=== PATIENT | female | born 1965 | race Asian ===

== ENCOUNTER 2021-03-18 09:24 | Outpatient (REF) | payer OTHER, SELFPAY ==
[2021-03-18 11:21] LABS: Alanine Aminotransferase 7 U/L (0-31); Albumin Level 4.4 g/dL (3.5-5.0); Alkaline Phosphatase 76 U/L (39-117); Anion Gap 11 (12-20); Aspartate Amino Transferase 15 U/L (5-31); Bilirubin Direct < 0.2 mg/dL (0.0-0.5); Bilirubin Total 0.4 mg/dL (0.0-1.0); Blood Urea Nitrogen 14 mg/dL (9-16); Calcium 9.4 mg/dL (8.4-10.2); Carbon Dioxide 23 mmol/L (22-29); Chloride 112 mmol/L (96-108); Estimated Glomerular Filt Rate > 60; Glucose Random 87 mg/dL (60-115); Potassium 4.1 mmol/L (3.3-5.1); Sodium 142 mmol/L (135-145); Total Protein 7.3 g/dL (6.5-8.0)
[2021-03-18 11:51] LABS: Syphilis Screen Nonreactive (Nonreactive)
[2021-03-18 11:58] LABS: Vitamin B12 456 pg/mL (200-900)
[2021-03-18 12:12] LABS: Erythrocyte Sedimentation Rate 7 MM/HR (0-20)
[2021-03-19 21:02] LABS: Lyme Abs Screen <0.90 index
[2021-03-21 00:37] LABS: Anti Nuclear Antibody Screen POSITIVE (NEGATIVE)
[2021-03-21 06:17] LABS: Angiotensin Converting Enzyme 28 U/L (9-67)
== END 2021-03-18 09:25 | disposition home or self-care (01) ==
LOC: HO.LAB 09:24
PROVIDERS: PCP Internal Medicine; Visit Provider Psychiatry & Neurology Neurology
DX: Z01.84 Encounter for antibody response examination (principal); Z11.3 Encounter for screening for infections with a predominantly sexual mode of transmission; G93.49 Other encephalopathy
CPT/HCPCS: 36415; 80048; 80076; 82164; 82607; 85652; 86038; 86039; 86617; 86618; 86780

== ENCOUNTER 2025-07-31 13:45 | Outpatient (AMB) | payer OTHER, SELFPAY ==
--- NOTE | 2025-07-31 13:51 | A.OFFVIS_ITS ---
Intake Visit Reasons: 6 Months HPI Comments Details: 59 years old woman with history of breast cancer, white matter lesions on MRI of brain of unknown cause, chronically somewhat stress as she was taking care of her elderly mother, with depression and insomnia. She is presenting with insomnia and associated symptoms. She reports a chronic history of intermittent difficulty with sleep, notably worsened over the past year. The patient suggests her insomnia is tied to chronic stress and unmanaged depression, with episodes of disturbed sleep marked by difficulty shutting off her thoughts. She acknowledges having been prescribed fluoxetine for depression, which she discontinued due to side effects including heart palpitations, leaving her depression inadequately managed and contributing to her sleep issues. In addition to sleep disturbances, the patient experiences dizziness, described as a sensation similar to motion sickness. This dizziness occurs intermittently, without an identified cause, affecting her throughout the day and night. The patient?s cognitive concerns, perceived as memory difficulties, have raised concerns of potential dementia, though these symptoms are suspected to be secondary to depression and sleep deprivation. She continues to experience migraines, with symptoms exacerbating during periods of inadequate rest, although she currently describes her migraines as less severe. Despite interventions, such as being on trazodone, her symptoms remain o nly partially managed. Review of Systems Narrative - Neurologic: Reports dizziness, insomnia, sleep disturbances, memory issues. - Psychiatric: Reports chronic stress, unmanaged depression. - Head: Reports migraines. - General: Denies nausea and vomiting associated with dizziness. Physical Exam Neuro Other: Mental Status: Alert and oriented to person, place, and time. Normal attention. Normal spontaneous speech, fluency, and comprehension. No obvious issues with mood and memory. Affect is appropriate. Cranial Nerves: CN II: Visual huff full to confrontation, visual acuity intact. CN III, IV, : Pupils equal, round, reactive to light and accommodation. Extraocular movements are normal. CN V: Facial sensation is normal. CN VII: Facial movements symmetrical. CN VIII: Hearing intact to bedside conversation is normal. CN IX, X: Palate elevates symmetrically. CN XI: Shoulder shrug and head turn symmetrical. CN XII: Tongue midline without atrophy or fasciculations. Extrapyramidal: Full facial expressions and blinking. No rigidity. Movements are appropriate with no tremor or abnormality. Speech: Normal; no dysarthria or tremor. Assessment & Plan Assessment & Plan (1) Insomnia: Comment: MRI brain WO at [place] in February 2021: numerous WM lesions, no specific pattern. CT brain WO at [facility] in Sep 2024: Mild cerebellar atrophy. Code(s): G47.00 - Insomnia, unspecified Category: Medical Qualifiers: Insomnia type: psychophysiologic Qualified Code(s): F51.04 - Psychophysiologic insomnia (2) Cerebral microvascular disease: Code(s): I67.89 - Other cerebrovascular disease Category: Medical Plan Impression recommendations: 59 years old woman with chronic depression and associated insomnia. She was also taking care of her elderly mother. Her MRI in the past has revealed nonspecific white matter signal abnormalities. Sometime she also had migraine type of headaches. She has done well for awhile with fluoxetine in the morning and trazodone at night. Apparently, she has stopped taking fluoxetine and was complaining of dizziness, headache, and difficulty sleeping. Examination was nonfocal. My recommendation was to restart fluoxetine 20 mg in the morning and trazodone 50 mg half to 1 tablet at bedtime. She and her son were educated about her problems. I would see her back in 3 months' time Medications: New trazodone 50 mg PO BEDTIME PRN 90 tabs 0RF sleep fluoxetine 20 mg PO DAILY 90 caps 0RF Coding Level of Care Code Est Pt Level 4 (77360) Global (80849) Diagnoses Psychophysiological insomnia F51.04 Insomnia type: psychophysiologic Cerebral microvascular disease I67.89 Time Spent (min) 45
--- OUTSIDE RECORDS SUMMARY | 2025-07-31 15:57 | XMS_ITS | Clinical Summary ---
Author Organization [facility] Address [address] [place] [address] Phone Care Team Providers Care Pullman Clerk Name Role Phone Daryl Dunn MD Primary Care Provider [phone] Allergies Active Allergy Reactions Criticality Noted Date Comments Other 06/25/2017 Seasonal Levonorgestrel-Ethinyl Estrad 2024 Medications FLUoxetine (PROzac) 10 mg capsule Take 1 capsule (10 mg total) by mouth daily. Active polyethylene glycol (Golytely) 236-22.74-6.74 -5.86 gram solution Take 4L by mouth once for one dose. May substitue any PEG. Starting at 6PM the night before your procedure drink 1 8oz glasses at your own pace until you complete half of the gallon. Finish 2nd half of the gallon 5 hours before your procedure. 4000 mL 4 Active bisacodyL (DULCOLAX) 5 mg EC tablet Take 2 tablets by mouth right before beginning bowel prep. See instructions provided by the office 2 tablet 4 Active amitriptyline (ELAVIL) 10 mg tablet Take 1-2 tablets (10-20 mg total) by mouth at bedtime. 60 each 5 10/11/19 26 Active hydrOXYzine HCL (ATARAX) 10 mg tablet Take 1 tablet (10 mg total) by mouth at bedtime as needed for itching (and insomnia). 90 tablet 1 5 Active omeprazole (PriLOSEC) [address] capsule TAKE 1 CAPSULE BY MOUTH EVERY DAY 90 capsule 1 5 Active scopolamine (TRANSDERM-SCOP ) 1 mg over 3 days patch 3 dayIndications: Nonintractable headache, unspecified chronicity pattern, unspecified headache type,Tinnitus of left ear Apply 1 patch topically every 3rd (third) day if needed (nausea). 4 patch 2 5 08/04/20 25 Active famotidine (PEPCID) 20 mg tablet Take 1 tablet (20 mg total) by mouth 1 (one) time each day. 90 tablet 1 5 Active donepeziL (ARICEPT) 10 mg tablet Take 1 tablet (10 mg total) by mouth at bedtime. 90 tablet 1 5 Active alendronate (FOSAMAX) 70 mg tablet Take 1 tablet (70 mg total) by mouth every 7 (seven) days. 12 tablet 1 5 Active donepeziL (ARICEPT) 5 mg tablet Take 1 tablet (5 mg total) by mouth at bedtime. 90 tablet 1 5 12/27/19 26 Active Active Problems Problem Noted Date Diagnosed Date Gastroesophageal reflux dise ase with esophagitis without hemorrhage 12/03/2023 Osteoporosis 06/25/2020 Tubular adenoma of colon 10/11/2019 S/P bilateral mastectomy 06/24/2017 Dementia ([facility] V24, [facility] V28) 02/10/2017 Headache 09/27/2012 Depression 02/18/2011 Overview (06/05/2025): Last Assessment & Plan: Continue meds and follow up with therapist. Currently stable. No SI, HI. Seasonal allergies 01/26/2008 Encounters Date Type Department Care Team Description 07/14/2025 Telephone Adult Medicine [address] [phone] Deysi Meredith MA 06/14/2025 Telephone Adult Medicine [address] [phone] Daryl Dunn MD 06/05/2025 3:30 PM EDT Office Visit Adult Medicine [address] [phone] Estrellita Denis NP Nonintractable headache, unspecified chronicity pattern, unspecified headache type (Primary Dx); Tinnitus of left ear; Insomnia, unspecified type; Mild dementia, unspecified dementia type, unspecified whether behavioral, psychotic, or mood disturbance or anxiety ([facility] V24, [facility] V28) 06/01/2025 Nurse Triage Adult Medicine [address] [phone] Daryl Dunn MD from Last 3 Months Immunizations Immunization Administration Dates Next Due Hepatitis A Adult (Havrix; V aqta) 19yo and older 01/15/2012 Influenza Quadravalent, MDCK , 0.5ml, preservative free (Flucelvax) 6mo and older 06/22/2018 Influenza Quadravalent, MDCK , 0.5ml, with preservative (Flucelvax) 6mo and older 06/12/2017 Influenza Quadravalent, selvin mbinant, 0.5ml, preservative free (Flublok) 18yo and older 06/16/2023 Influenza Quadrivalent, 0.5m l, preservative free (Fluarix; FluLaval; Fluzone) ages 6mo and older (Afluria) 3yo and older 07/01/2022,06/23/2021,05/28/2020,07/04 Influenza trivalent, recombi nant, 0.5mL, preservative free (Flublok) 9yo and older 07/12/2024 Influenza trivalent, with pr eservative (Fluzone; Afluria) 6mo and older 08/08/2016,08/02/2015,07/25/2014,06/17,05/27/2012 Meningococcal MCV4P 09/19/2019 Tdap Tetanus diptheria acell ular pertussis (Boostrix; Adacel) 7yo and older 01/15/2012 Typhoid VICPS (Typhim Vi) 2y o and older 01/15/2012 Surgical History Surgery Date Site/Laterality Comments CHOLECYSTECTOMY PROCEDURE: [place] LAPAROSCOPY SURG CHOLECYSTECTOMY COLONOSCOPY 07/08.16 PROCEDURE: HISTORICAL COLONOSCOPY; COMMENT: adenomas; repeat in 3 yrs BREAST BIOPSY 03/25/2017 Left PROCEDURE: NV BX BREAST NEEDLE CORE W/O IMAGING GUIDANCE SPX MASTECTOMY Bilateral Medical History Medical History Date Comments Headache(784.0) DX:Headache(784. 0) Breast cancer, stage 1, estr ogen receptor positive (CMS/HCC V24, CMS/HCC V28) 05/18/2017 DX:Breast cancer, stage 1, e strogen receptor positive (HCC) Tubular adenoma of colon 10/11/2019 DX:Tubu lar adenoma of colon Family History Medical History Relation Name Comments Breast cancer Aunt m 60s age 60s Heart attack Brother 1 AND UNCLE HAD O PEN HEART SURGERY Colon cancer Father 80 Diabetes Father 80 TYPE 2 Other: cancer prostate Other husba nd Other: HEART PROBLEMS Paternal Grandfather ?NC Blindness Neg Hx Cataracts Neg Hx Glaucoma Neg Hx Macular degeneration Neg Hx Ovarian cancer Neg Hx Pancreatic cancer Neg Hx Prostate cancer Neg Hx Strabismus Neg Hx Uterine cancer Neg Hx Relation Name Status Comments Aunt m 60s Brother 1 Brother 2 Alive Brother 3 Alive Brother 4 Alive Daughter Alive Father 80 Alive Mother Alive Other Paternal Grandfather Sister 1 Alive Sister 2 Alive Sister 3 Alive Sister 4 Alive Sister 5 Alive Sister 6 Alive Son Alive Social History Tobacco Use Types Packs/Day Years Used Date Smoking Tobacco: Never Smokeless Tobacco: Never Tobacco Cessation:Counseling Given: Not Answered Alcohol Use Standard Drinks/Week Comments No 0 (1 standard drink = 0.6 oz pur e alcohol) Housing Instability Answer Date Recorde d Are you worried that in the next 2 months you may not have stable housing? No 04/18/2025 Food Access & Nutrition Answer Date Rec orded Do you have access to a vari ety of food including fruits and vegetables? No 04/18/2025 Access to Healthcare Answer Date Record ed Within the last 3 months, ho w many times did you visit the emergency department for your medical care? 0 04/18/2025 Health Literacy Answer Date Recorded How often do you need to hav e someone help you when you read instructions, pamphlets, or other written material from your doctor or pharmacy? Often 04/18/2025 Caregiver: How often do you need to have someone help you when you read instructions, pamphlets, or other written material from your doctor or pharmacy? Not on file 04/18/2025 Financial Risk Answer Date Recorded How hard is it for you to pa y for the very basics like food, housing, medical care, and air conditioning / heating? Not very hard 04/18/2025 Transportation Answer Date Recorded Has the lack of transportati on kept you from meetings, work, or from getting things needed for daily living? No Has the lack of transportati on kept you from medical appointments or from getting medications? No 04/18/2025 Social Isolation Answer Date Recorded How often do you feel lonely or isolated from th ose around you? Never 04/18/2025 Food Risk Answer Date Recorded Within the past 12 months we worried whether our food would run out before we got money to buy more. Never true 04/18/2025 Within the past 12 months th e food we bought just didn't last and we didn't have money to get more. Never true 04/18/2025 Dependent Care Answer Date Recorded Do you need help finding or paying for care for your loved ones. For example, children teacher or elderly care for an older adult? No 04/18/2025 Education Answer Date Recorded Do you think completing more education or training, like finishing a GED, going to college, or learning a trade, would be helpful for you? No 04/18/2025 Employment and Income Answer Date Recor ded During the last four weeks, have you been actively looking for work? No 04/18/2025 Living Situation Answer Date Recorded What is your living situation? Unrecognized valu e 04/18/2025 Interpersonal Safety Answer Date Record ed Physical Abuse Unrecognized value 09/16/2024 Verbal Abuse Unrecognized value 09/16/2024 Comments No Sex and Gender Information Value Date Recorded Sex Assigned at Female 09/12/2024 11:05 AM EST Legal Sex Female 6:19 AM EST Gender Identity Female 09/12/2024 11:05 AM EST Sexual Orientation Straight 09/12/2024 11 :05 AM EST Obstetrics History Last Filed Vital Signs Vital Sign Reading Time Taken Comments Blood Pressure 126/62 06/05/2025 3:30 PM EDT Pulse 60 06/05/2025 3:30 PM EDT Temperature 35.8 C (96.5 F) 06/05/2025 3:30 PM EDT Respiratory Rate 15 06/05/2025 3:30 PM EDT Oxygen Saturation 99% 06/05/2025 3:30 PM EDT Inhaled Oxygen Concentration - - Weight 61.6 kg (135 lb 11.2 oz) 06/05/2025 3:30 PM EDT Height 154.9 cm (5' 1 ) 06/05/2025 3:30 PM EDT Body Mass Index 25.64 06/05/2025 3:30 PM EDT Plan of Treatment Upcoming Encounters Date Type Department Care Team (Late st Contact Info) Description 08/29/2025 11:15 AM EST Appointment Bone Density - [address] [phone] 10/12/2025 3:00 PM EST Office Visit Adult Medicine [address] [phone] Maria G Jauregui PA [address] [place] [address] 04/17/2026 2:00 PM EDT Office Visit Adult [address] [phone] Daryl Dunn MD [address] [place] [address] Health Maintenance Due Date Last Done Comments Zoster Vaccines (1 of 2) 1983 Cervical Cancer Screening: HPV 1985 Pneumococcal Vaccine: 50+ Years (1 of 1 - PCV) 2014 COVID-19 Vaccine (3 - Pfizer risk series) 04/23/2021 03/26/2021, 01/25/2021 DTaP,Tdap,and Td Vaccines (2 - Td or Tdap) 01/14/2022 01/15/2012 Medicare Annual Wellness Visit 08/28/2022 Influenza Vaccine (#1) 2025 , 06/16/2023, 07/01/2022, Additional history exists Social Influencers of Health Screening 04/18/2026 04/18/2025 Colorectal Cancer Screening: Colonoscopy 09/16/2029 09/16/2024 Cholesterol Screening (Lipid Panel) 04/12/2030 04/12/2025, 04/06/2024 Osteoporosis Screening (Bone Density Screening) 08/19/2033 08/19/2023, 06/20/2020, 04/09/2018 RSV Immunization Adult Patients (1 - 1-dose 75+ series) 2039 Hepatitis A Vaccines Aged Out 01/15/2012 No long er eligible based on patient's age to complete this topic Meningococcal ACWY Vaccine Aged Out 09/19/2019 N o longer eligible based on patient's age to complete this topic HIV Screening Completed 04/12/2025 Hepatitis C Screening Completed 04/12/2025 Depression Screening Completed 04/18/2025 HIB Vaccines Aged Out No longer eligi ble based on patient's age to complete this topic HPV Vaccines Aged Out No longer eligi ble based on patient's age to complete this topic Hepatitis B Vaccines Aged Out No long er eligible based on patient's age to complete this topic IPV Vaccines Aged Out No longer eligi ble based on patient's age to complete this topic MMR Vaccines Aged Out No longer eligi ble based on patient's age to complete this topic Meningococcal B Vaccine Aged Out No l onger eligible based on patient's age to complete this topic RSV Immunization Patients Under 20 months Aged Out No longer eligible based on patient's age to complete this topic Varicella Vaccines Aged Out No longer eligible based on patient's age to complete this topic Procedures Procedure Name Priority Date/Time Associated Diagnosis Comments HEPATITIS C ANTIBODY Routine 04/12/2025 12:26 PM EDT Screen for STD (sexually transmitted disease) HIV 1, 2 ANTIBODY, P24 ANTIGEN WITH REFLEX TO DIFFERENTIATION Routine 04/12/2025 12:26 PM EDT Screen for STD (sexually transmitted disease) LIPID PANEL WITH REFLEX TO DIRECT LDL Routine 04/12/2025 12:26 PM EDT Routine history and physical examination of adult COLONOSCOPY Routine 09/16/2024 9:25 AM EST Hx of colonic polyps DXA BONE DENSITY STUDY 1+ SITS AXIAL SKEL Routine 08/19/2023 2:09 PM EST Encounter for screening for osteoporosis from Last 3 Months or Most Recently Relevant to Health Maintenance Results * Hepatitis C antibody (04/12/2025 12:26 PM EDT) [facility] Hepatitis C Antibody Negative Negative LAB CHEMISTRY METHOD 04/12/2025 6:14 PM EDT [facility] Blood Venous blood specimen / Unknown Venipuncture / Unknown 04/12/2025 12:26 PM EDT 04/12/2025 12:26 PM EDT [facility] LAB BLOOD ORDERABLES Fi nal Result Performing Organization Address [facility]/ZIP Co de Phone Number [facility] [address] [place] [address], [place] [phone] * HIV 1,2 antibody, p24 antigen with reflex to differentiation (04/12/2025 12:26 PM EDT) [facility] HIV Combo AB/AG Negative Negative LAB CHEMISTRY METHOD 04/12/2025 6:14 PM EDT [facility] Blood Venous blood specimen / Unknown Venipuncture / Unknown 04/12/2025 12:26 PM EDT 04/12/2025 12:26 PM EDT Narrative [facility] - 04/12/2025 6:14 PM EDT This assay is a 4th generation assay allowing for earlier detection of HIV infection by detecting the presence of the HIV-1 p24 antigen as well as the traditional antibodies to HIV type 1 (including group O) and type 2. Use of a 4th generation assay is the current CDC recommendation for HIV screening. [facility] [facility] LAB BLOOD ORDERABLES Fi nal Result Performing Organization Address [facility]/ZIP Co de Phone Number [facility] [address] [place] [address], [place] [phone] * (ABNORMAL) Lipid panel with reflex to direct LDL (04/12/2025 12:26 PM EDT) Cholesterol 176 0 - 200 mg/dL LAB CHEMISTRY METHOD 04/12/2025 5:16 PM EDT [facility] Triglycerides 237(H) 0 - 150 mg/dL LAB CHEMISTRY METHOD 04/12/2025 5:16 PM EDT [facility] HDL 45 >=40 mg/dL LAB CHEMISTRY METHOD 04/12/2025 5:16 PM EDT [facility] LDL Calculated 84 0 - 100 mg/dL LAB CHEMISTRY METHOD 04/12/2025 5:16 PM EDT [facility] VLDL Cholesterol Neville 47.4 mg/dL LAB CHEMISTRY METHOD 04/12/2025 5:16 PM EDT [facility] Non HDL Chol. (LDL+VLDL) 131 <145 mg/dL LAB CHEMISTRY METHOD 04/12/2025 5:16 PM EDT [facility] Chol/HDL Ratio 3.9 0.0 - 4.4 LAB CHEMISTRY METHOD 04/12/2025 5:16 PM EDT [facility] Blood Venous blood specimen / Unknown Venipuncture / Unknown 04/12/2025 12:26 PM EDT 04/12/2025 12:26 PM EDT Marai G WANG LAB BLOOD ORDERABLES Fi nal Result [facility] [address] [place] [address], * COLONOSCOPY Anesthesia - [facility]; [facility] (09/16/2024 9:25 AM EST) Anatomical Region Laterality Modality Endoscopy 09/16/2024 7:34 AM EST Impressions 09/16/2024 9:25 AM EST - Hemorrhoids found on perianal exam. - One 4 mm polyp in the ascending colon, removed with a jumbo cold forceps. Resected and retrieved. - Two 6 to 9 mm polyps in the cecum, removed with a cold snare. Resected and retrieved. - The examination was otherwise normal on direct and retroflexion views. Recommendation: - - Discharge patient to home. - High fiber diet. - Continue present medications. - Await pathology results. - Repeat colonoscopy for surveillance based on pathology results. Narrative 09/16/2024 9:25 AM EST [facility] GI Patient Name: Maty Hernanedz Procedure Date: 09/16/2024 7:34 AM Date of : 1965 Age: 58 Gender: Female Note Status: Finalized Attending MD: Shelton Lozada DO, [id number] Procedure Date No Time: 09/16/2024 Procedure: Colonoscopy Indications: High risk colon cancer surveillance: Personal history of colonic polyps Providers: Shelton Lozada DO Referring MD: Bobbi Dunn Medicines: Monitored Anesthesia Care Complications: No immediate complications. Estimated blood loss: Minimal. Estimated Blood Loss: Estimated blood loss was minimal. Procedure: Pre-Anesthesia Assessment: - - Prior to the procedure, a History and Physical was performed, and patient medications and allergies were reviewed. The patient is competent. The risks and benefits of the procedure and the sedation options and risks were discussed with the patient. All questions were answered and informed consent was obtained. Patient identification and proposed procedure were verified by the physician, the nurse, the anesthesiologist, the rn occupational health and the maintenance technician 2nd shift in the pre-procedure area in the endoscopy suite. Mental Status Examination: alert and oriented. Airway Examination: normal oropharyngeal airway and neck mobility. Respiratory Examination: clear to auscultation. CV Examination: normal. Prophylactic Antibiotics: The patient does not require prophylactic antibiotics. Prior Anticoagulants: The patient has taken no anticoagulant or antiplatelet agents. ASA Grade Assessment: II - A patient with severe systemic disease. After reviewing the risks and benefits, the patient was deemed in satisfactory condition to undergo the procedure. The anesthesia plan was to use monitored anesthesia care (MAC). Immediately prior to administration of medications, the patient was re-assessed for adequacy to receive sedatives. The heart rate, respiratory rate, oxygen saturations, blood pressure, adequacy of pulmonary ventilation, and response to care were monitored throughout the procedure. The physical status of the patient was re-assessed after the procedure. After I obtained informed consent, the scope was passed under direct vision. Throughout the procedure, the patient's blood pressure, pulse, and oxygen saturations were monitored continuously. The Colonoscope was introduced through the anus and advanced to the cecum, identified by appendiceal orifice and ileocecal valve. The colonoscopy was performed without difficulty. The patient tolerated the procedure well. The quality of the bowel preparation was good. Findings: Hemorrhoids were found on perianal exam. A 4 mm polyp was found in the ascending colon. The polyp was sessile. The polyp was removed with a jumbo cold forceps. Resection and retrieval were complete. Estimated blood loss was minimal. Two sessile polyps were found in the cecum. The polyps were 6 to 9 mm in size. These polyps were removed with a cold snare. Resection and retrieval were complete. Estimated blood loss was minimal. The exam was otherwise without abnormality on direct and retroflexion views. Procedure Code(s): --- Professional --- 63510, Colonoscopy, flexible; with removal of tumor(s), polyp(s), or other lesion(s) by snare technique [id number], 59, Colonoscopy, flexible; with biopsy, single or multiple Diagnosis Code(s): --- Professional --- D12.0, Benign neoplasm of cecum D12.2, Benign neoplasm of ascending colon K64.9, Unspecified hemorrhoids Z86.010, Personal history of colonic polyps CPT copyright 2020 [employer]. All rights reserved. The codes documented in this report are preliminary and upon analyst business analysis review may be revised to meet current compliance requirements. SHELTON Lozada DO 09/16/2024 9:25:10 AM This report has been signed electronically.Shelton Lozada DO Number of Addenda: 0 Note Initiated On: 09/16/2024 7:34 AM Scope Withdrawal Time: 0 hours 7 minutes 41 seconds Scope In: 9:12:55 AM Scope Out: 9:23:34 AM Endoscopy Department at [facility] - [address] [place] [id number] Procedure Note Shelton Lozada DO - 09/16/2024 [facility] GI Patient Name: Maty Hernandez Procedure Date: 09/16/2024 7:34 AM Date of : 1965 Age: 58 Gender: Female Note Status: Finalized Attending MD: Shelton Lozada DO, [id number] Procedure Date No Time: 09/16/2024 Procedure: Colonoscopy Indications: High risk colon cancer surveillance: Personalhistory of colonic polyps Providers: Shelton Lozada DO Referring MD: Bobbi Dunn Medicines: Monitored Anesthesia Care Complications: No immediate complications. Estimated blood loss: Minimal. Estimated Blood Loss: Estimated blood loss was minimal. Procedure: Pre-Anesthesia Assessment: - - Prior to the procedure, a History and Physicalwas performed, and patient medications and allergieswere reviewed. The patient is competent. The risks and benefits of the procedure and the sedation optionsand risks were discussed with the patient. Allquestions were answered and informed consent was obtained. Patient identification and proposed procedure were verified by the physician, the nurse, the anesthesiologist, the rn occupational health and thetechnician in the pre-procedure area in the endoscopy suite. Mental Status Examination: alert and oriented.Airway Examination: normal oropharyngeal airway and neck mobility. Respiratory Examination: clear to auscultation. CV Examination: normal. Prophylactic Antibiotics: The patient does not requireprophylactic antibiotics. Prior Anticoagulants: The patient has taken no anticoagulant or antiplatelet agents. ASA Grade Assessment: II - A patient with severesystemic disease. After reviewing the risks and benefits,the patient was deemed in satisfactory condition to undergo the procedure. The anesthesia plan was touse monitored anesthesia care (MAC). Immediately priorto administration of medications, the patient was re-assessed for adequacy to receive sedatives. The heart rate, respiratory rate, oxygen saturations, blood pressure, adequacy of pulmonary ventilation,and response to care were monitored throughout the procedure. The physical status of the patient was re-assessed after the procedure. After I obtained informed consent, the scope was passed under direct vision. Throughout theprocedure, the patient's blood pressure, pulse, and oxygen saturations were monitored continuously. The Colonoscope was introduced through the anus and advanced to the cecum, identified by appendiceal orifice and ileocecal valve. The colonoscopy was performed without difficulty. The patient tolerated the procedure well. The quality of the bowel preparation was good. Findings: Hemorrhoids were found on perianal exam. A 4 mm polyp was found in the ascending colon. The polyp was sessile. The polyp was removed with ajumbo cold forceps. Resection and retrieval werecomplete. Estimated blood loss was minimal. Two sessile polyps were found in the cecum. Thepolyps were 6 to 9 mm in size. These polyps were removedwith a cold snare. Resection and retrieval werecomplete. Estimated blood loss was minimal. The exam was otherwise without abnormality ondirect and retroflexion views. Procedure Code(s): --- Professional --- 02210, Colonoscopy, flexible; with removal of tumor(s), polyp(s), or other lesion(s) by snare technique 10467, 58, Colonoscopy, flexible; with biopsy,single or multiple Diagnosis Code(s): --- Professional --- D12.0, Benign neoplasm of cecum D12.2, Benign neoplasm of ascending colon K64.9, Unspecified hemorrhoids Z86.010, Personal history of colonic polyps CPT copyright 2020 [employer]. All rights reserved. The codes documented in this report are preliminary and upon analyst business analysis reviewmay be revised to meet current compliance requirements. SHELTON Lozada DO 09/16/2024 9:25:10 AM This report has been signed electronically.Shelton Lozada DO Number of Addenda: 0 Note Initiated On: 09/16/2024 7:34 AM Scope Withdrawal Time: 0 hours 7 minutes 41 seconds Scope In: 9:12:55 AM Scope Out: 9:23:34 AM Endoscopy Department at [facility] - [address] [place] [phone] IMPRESSION: - Hemorrhoids found on perianal exam. - One 4 mm polyp in the ascending colon, removedwith a jumbo cold forceps. Resected and retrieved. - Two 6 to 9 mm polyps in the cecum, removed with a cold snare. Resected and retrieved. - The examination was otherwise normal on directand retroflexion views. Recommendation: - - Discharge patient to home. - High fiber diet. - Continue present medications. - Await pathology results. - Repeat colonoscopy for surveillance based on pathology results. us Shelton Lozada DO GI~PROCEDURE ORDERABLES Final Re sult * DXA BONE DENSITY STUDY 1+ SITS AXIAL SKEL (08/19/2023 2:09 PM EST) Anatomical Region Laterality Modality Bone Densitometr y 06/02/2023 6:18 PM EDT Narrative 08/19/2023 7:49 PM EST STUDY: DUAL ENERGY X-RAY ABSORPTIOMETRY / DXA REASON FOR EXAM: Female, 57 years old menopausal/postmenopausal disorder TECHNIQUE: Bone Mineral Density (BMD) measurements of the lumbar spine and left hip were obtained using [employer] Discovery W (S/N [id number]). COMPARISON: April 09, 2018 FINDINGS: L1-L4 BMD: 0.655 g/cm2 L1-L4 T score: -3.6. This corresponds to osteoporosis. This represents a -9.6* % decrease in bone density compared with prior exam from April 09, 2018. Left femoral neck BMD: 0.635 g/cm2 Left femoral neck T score: -1.9. This corresponds to osteopenia. Left total hip BMD: 0.801 g/cm2 Left total hip T score: -1.2. This corresponds to osteopenia. This represents a -2.5 % decrease in bone density compared with prior exam from April 09, 2018. * - Indicates a statistically significant change. IMPRESSION: IMPRESSION: Osteoporosis Reference Information: The T-score is the number of standard deviations above or below the standard which is normal for young adults at their peak bone mineral density. The World Health Organization (WHO) interprets the T-scores as follows: At or above -1 SD Normal bone density Between -1 and -2.5 SD Osteopenia At or below -2.5 SD Osteoporosis Procedure Note Irene Henriquez MD - 10/27/2023 STUDY: DUAL ENERGY X-RAY ABSORPTIOMETRY / DXA REASON FOR EXAM: Female, 57 years old menopausal/postmenopausaldisorder TECHNIQUE: Bone Mineral Density (BMD) measurements of the lumbar spineand left hip were obtained using [employer] W (S/N [id number]). COMPARISON: April 09, 2018 FINDINGS: L1-L4 BMD: 0.655 g/cm2 L1-L4 T score: -3.6. This corresponds to osteoporosis. This represents a -9.6* % decrease in bone density compared with priorexam from April 09, 2018. Left femoral neck BMD: 0.635 g/cm2 Left femoral neck T score: -1.9. This corresponds to osteopenia. Left total hip BMD: 0.801 g/cm2 Left total hip T score: -1.2. This corresponds to osteopenia. This represents a -2.5 % decrease in bone density compared with prior examfrom April 09, 2018. * - Indicates a statistically significant change. IMPRESSION: IMPRESSION: Osteoporosis Reference Information: The T-score is the number of standard deviations above or below thestandard which is normal for young adults at their peak bone mineral density. The World HealthOrganization (WHO) interprets the T-scores as follows: At or above -1 SD Normal bone density Between -1 and -2.5 SD Osteopenia At or below -2.5 SD Osteoporosis Daryl Dunn MD IMG DXA PROCEDURES Final Result from Last 3 Months or Most Recently Relevant to Health Maintenance Insurance MEDICARE Member Subscriber Plan / Payer (Ef fective 2017-Present) Name:MATY HERNANDEZ Relation to Subscriber:Self Name:Maty Hernandez Payer ID:[id number] Group ID:[id number] Type:Not on file Address: [address] [id number] Advance Directives Documents on File Type Date Recorded Patient General Labor Expl anation Health Care Decision (hx) 05/06/2017 AD BARRY DIRECTIVE Health Care Decision (hx) 05/06/2017 AD BARRY DIRECTIVE Health Care Decision (hx) 05/06/2017 AD BARRY DIRECTIVE Health Care Decision (hx) 05/06/2017 AD BARRY DIRECTIVE Health Care Decision (hx) 05/06/2017 AD BARRY DIRECTIVE Health Care Decision (hx) 05/06/2017 AD BARRY DIRECTIVE Health Care Decision (hx) 05/06/2017 AD BARRY DIRECTIVE Health Care Decision (hx) 05/06/2017 AD BARRY DIRECTIVE Health Care Decision (hx) 05/06/2017 AD BARRY DIRECTIVE Health Care Decision (hx) 05/06/2017 AD BARRY DIRECTIVE Health Care Decision (hx) 05/06/2017 AD BARRY DIRECTIVE Health Care Decision (hx) 05/06/2017 AD BARRY DIRECTIVE Care Teams Pullman Clerk Relationship Specialty Start Date End Date Daryl Dunn MD [address] [place] [phone] PCP - General Internal Medicine 03/29/08
--- OUTSIDE RECORDS SUMMARY | 2025-07-31 15:58 | XMS_ITS | Encounter Summary ---
Author Organization [facility] Address [address] [place] [address] Care Team Providers Care Critical Care Registered Nurse Name Role Phone Daryl Dunn MD Primary Care Provider [phone] Reason for Visit * Reason Onset Date Comments Advice Only 07/14/2025 Encounter Details Date Type Department Care Team ([facility] st Contact Info) Description 07/14/2025 Telephone Adult Medicine [address] [phone] Deysi Meredith MA Social History Tobacco Use Types Packs/Day Years Used Date Smoking Tobacco: Never Smokeless Tobacco: Never Alcohol Use Standard Drinks/Week Comments No 0 [...] care for your loved ones. For example, child care worker or elderly care for an older adult? [...] Orientation Straight 09/12/2024 11 :05 AM EST documented as of this encounter Progress Notes * Daryl Dunn MD - 07/25/2025 7:16 PM EST Yes, looks like patient takes the bulk of her meds at night, the omeprazole is written for am as isthe famotidine, but going forward please tell patient she can take all her meds at night * Fadi Iraheta MA - 07/20/2025 3:31 PM EDT Please review and advise. * Deysi Meredith MA - 07/14/2025 3:36 PM EDT Patient want to know if she can take all her meds together.Please Advise documented in this encounter Plan of Treatment Upcoming Encounters Date Type Department Care Team (Late st Contact Info) Description 08/29/2025 11:15 AM EST Appointment Bone Density [address] [phone] 10/12/2025 3:00 PM EST Office Visit Adult [address] [phone] Maria G Jauregui PA [address] [place] [address] 04/17/2026 2:00 PM EDT Office Visit [address] [phone] Daryl Dunn MD [address] [place] [address] documented as of this encounter Visit Diagnoses Not on filedocumented in this encounter Additional Health Concerns Assessment Noted Time PHQ-9 Depression Total Score: 0 04/18/20 25 2:20 PM EDT documented as of this encounter Care Teams Critical Care Registered Nurse Relationship Specialty Start Date End Date Daryl Dunn MD [address] [place] [address] PCP - General Internal Medicine 03/29/08 documented as of this encounter
== END 2025-07-31 14:08 | disposition home or self-care (01) ==
LOC: HO.HSM 13:46
PROVIDERS: PCP Internal Medicine; Referring Provider Internal Medicine; Visit Provider Psychiatry & Neurology Neurology
DX: F51.04 Psychophysiologic insomnia (principal); I67.89 Other cerebrovascular disease
CPT/HCPCS: 99214; G2211

== ENCOUNTER → 2025-07-31 13:45 | Outpatient (BNVA) | payer OTHER, SELFPAY | PROVIDERS: PCP Internal Medicine; Referring Provider Internal Medicine; Visit Provider Psychiatry & Neurology Neurology | DX: F51.04 Psychophysiologic insomnia (principal); I67.89 Other cerebrovascular disease | CPT/HCPCS: 99212 ==